=== PATIENT | male | born 1970 | race Caucasian/White ===

== ENCOUNTER 2018-06-18 05:43 | Day surgery (SDC) | payer OTHER ==
--- NOTE | 2018-06-17 20:39 | PDGENHP ---
History and Physical - Chief Complaint RIGHT HIP PAIN - History of Present Illness 1. Bilateral~Femoroacetabular impingement (MELO) Cam type,~with~resultant labral tear;~RIGHT SIDE SYMPTOMATIC 2. Right~Borderline Hip~Dyplasia 3. ~~Right Hip Early Osteoarthritis 4. ~~Left lower radicular symptoms 5. 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 ~Allisonenjoys birding, running, and cycling. Camilo's~right~hip pain~started January 2017, with~no~recalled trauma or injury, and with~no~previous complaints.~Allisonhas~a known history of hip dysplasia. He was seen by Dr. Hernandes who diagnosed him with~Right~BL~Hip~dysplasia. Presentation today is of~lateral~right~hip pain. ~The hip~does~wake him~at night and~does~click and catch on~him. Sitting~can be uncomfortable~for him.~ Allisondoes~report suffering from lower back pain episodes (for 20 years----~has Left lower radicular symptoms) Allisonhas~participated in physical therapy (several months)~and has~tried other conservative measures including cortisone Right~hip injection~(he had immediate relief with 4 months of relief)~.~He~has not~received sufficient symptomatic improvement. Allisonhas not~utilized medication for pain management. Allisondenies issues with the left~hip. ~ Allisonunderstands that~kvng~has a hip and pelvis problem which should be researched and wishes to get a better understanding of~his~hip status, followed by an establishment of a treatment strategy, hoping~kvng~would be able to get back to~his~well being active life. 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 Relevant familial history:~Mom with Hemophilia Past surgical history:~ No. Surgery Anesthesia 1 Sinus surgery x2 general Camilo~denies problematic issues with general anesthesia in the past. I have reviewed, verified and agree with the past medical, surgical, family and social history. Current Medications:~has a current medication list which includes the following prescription(s): alpha lipoic acid, azelaic acid, cholecalciferol (vitamin d3), diphenhydramine, fexofenadine, ibuprofen, ketoconazole, minoxidil, omega-3s/dha/ epa/fish oil, recombinate, and tretinoin. ALLERGIES:~is allergic to ddavp [desmopressin]. Objective: Physical Examination: Allisonis 6~feet~0~inches tall and weighs~150~Lbs. Allisonis AAO x3; kvng~is well- nourished, in NAD. Skin is warm and dry. ~Breathing is non-labored. ~CV with RRR by pulse. Abdomen is soft, NTND. Currently,~kvng~walks with a~normal~gait. Trendelenburg sign is~negative~and proprioception~is normal,~both~sides. Kvng~presents~with mild~signs of joint laxity.~Beightons Score:~0 Lower spine examination is~negative~for sciatic or femoral nerve irritation with negative~SLR &~femoral stretch tests. Range of motion of the spine is normal~for flexion, extension, and rotations,~with no~associated pain. Strength, Sensation and pulses are~normal -~bilaterally Ankles and knees exams are~normal~and~no~mal-alignment is evident.~ Kvng~has~leg length discrepancy LEFT SHORT 1 cm Thigh circumference is~symmetric~with no evidence for muscle atrophy~on both~ sides. Hip ROM (degrees): FL ER At 90~hip FL IR At 90~hip FL AB AD EX IR Neutral hip ER Neutral hip R 105 50 45 30 5 5 50 40 L 105 50 20 40 5 10 40 50 Specific hip and pelvis tests: Impingement Test AMY Roll Add. Longus R +++ +++ Negative Negative L Negative Negative Negative Negative Glut. Med ITB Posterior Imp R Negative 5/5 strength Negative 5/5 strength Negative L Negative 5/5 strength Negative 5/5 strength Negative Squeeze test measured~strong Bony Symphysis pubis is~pain free~to touch while concentric activity of the rectus abdominis, does not~produce pain at its insertion. Ilio Psos specific tests are~negative for pain during cycling for~both hips~and no snap. HF has~good strength no pain~both hips. Left Lateral~capsule tenderness. Greater trochanteric burse is~pain free~on both hips. Piriformis tests: FAIR is~negative,~with no~local signs of neuritis related to sciatic nerve. SIJs examination is~normal~with~normal~AMY in relation and local tenderness. Hamstrings tests are~negative~functional contraction and negative~tendinopathy both hips. Left Tibia:~VARUS BOWING On a daily basis, the following percentages reflect~Camilo's overall total pain: Deep hip:~100% Imaging: Radiology studies which I~have personally reviewed, analyzed and measured are below: XR: AP of the hip and pelvis: Performed in a~good~technique Coccyx~below~pubic symphysis 0~degrees [place]~Lines are preserved. Minimal~Pathological signs are seen in the Symphysis Pubis.~ Minimal~Pathological signs are seen at the Ischial~tuberosity. ~ Specific measurements show:~ 12 Caudal in parenthesis NSA~ LCE Sourcil~Angle Sharp's angle Lat. Cam Lat. Pincer C.Over~sign Head~Coverage % ATDmm R N 23~(25) 7 (9) 42 + - - 74 N L N 29~(29) 8 (7) 42 + - - 88 N Pos. wall sign ISS NAD ~~Dysplasia Comments R Negative Negative 14~mm ++ L Negative Negative 15.6~mm Negative Sclerosis Sup. Lat. OA Cysts Joint Space-WBZ Joint Space-Medial R + ++ ++ 4.3~mm 4.3~mm L + + + 5.2~mm 4.6~mm 5.2 X Table lateral: Anterior cam lesion is~seen~on both hips. Alpha Angle: ~ Right~53~dergrees Left~60~degrees Right Hip~MRI shows:~some cartilage damage, small labrum with tear, no bone edema or subchondral cysts Impression and plan:~ Camilo~is a~47 y.o.~active male~suffering from symptomatic~Right~hip pain due to Borderline~Hip Dyplasia and~Femoroacetabular impingement (MELO) Cam type,~with~ resultant labral tear causing significant disability to~him~and altering~his~ sport and life activities. Physical examination, imaging, and~his~story correspond with the diagnosis mentioned above. I explained that hip dysplasia is a condition wherein the hip joint has excessive play~and instability due to a variety of factors, including the depth and adequacy of the socket, the orientation of the femur bone, and ligament laxity around the hip joint. Dysplasia ranges in severity from borderline to jazmín, with treatment options being specific to the specific nature of the problem. Left untreated, the instability in the hip joint can cause progressive tearing of the labrum and deterioration of the surface cartilage, ultimately resulting in progressive osteoarthritis of the hip. I explained that femoroacetabular impingement (MELO - Cam type) arises due to a bony or soft tissue conflict between the femur (ball) and acetabulum (socket) caused by an abnormality in the shape of the femoral head and neck. Over time, repetitive impingement can result in damage to the labrum and adjacent surface cartilage within the socket, ultimately giving rise to progressive osteoarthritis of the hip. I explained that although a labral tear can be a source of pain, it is rarely the root of the problem and typically occurs secondary to an underlying abnormality in the shape and mechanics of the hip joint. I reviewed conservative treatment options for Dysplasia and MELO including activity modification to avoid positions of impingement or instability, physical therapy, non-steroidal anti-inflammatory medications, and various injections (corticosteroid and PRP) aimed at reducing inflammation in the hip joint or/and preventing dynamic instability and impingement. PRP injections may promote healing and reduce symptoms in certain cases but it will not repair chronically damaged tissue. Although these measures may help to buy time~and reduce current level of symptoms, they are not a definitive solution to the problem given the underlying abnormality in the shape of the hip joint. Patients who have failed conservative management and continue to experience symptoms are candidates for definitive surgical treatment, which may consist of hip arthroscopy alone or in combination with more invasive bony realignment procedures of the hip socket and/or femur called periacetabular osteotomy (ISMAEL) or derotational femoral osteotomy (DFO). Hip arthroscopy typically includes treating the labrum with either repair or reconstruction of the torn labrum; as well as addressing the underlying abnormalities by restoring the normal shape to the hip joint. If the cartilage is damaged a Microfracture surgical procedure may also be necessary to help stimulate the growth of fibrocartilage. If a patient requires a labral reconstruction or a Microfracture, the initial rehabilitation from the surgery may take longer, but the long term care administrator results are typically favorable. I reviewed the technical aspects of periacetabular osteotomy (ISMAEL) including risks, benefits, and expected course of recovery.~Camilo~understands that ISMAEL is an inpatient procedure carried out through two medium sized incisions on the front and back of the hip joint. The hip socket is cut, realigned, and stabilized with 2 3 internal screws. Risks include infection, bleeding, injury to nearby nerves or vessels, stiffness, persistent pain, instability, failure of bony healing, implant related complications, and venous thromboembolic disease. Rarely, revision surgery may be required to address these problems. Risks, potential complications, side effects and recovery from surgical procedure were discussed in length. We explained how this surgery is an open procedure, and though patients tend to do well in the long-term, it involves significant pain in the first 2-4 weeks post-op and a rather lengthy rehab.~Overall recovery takes approximately 6 12~months depending on the extent of damage and degree of repair. Camilo~understands that he~will undergo hip arthroscopy 1 week prior to the ISMAEL to address damage inside the hip joint. Camilo~understands that hip arthroscopy and ISMAEL are two separate procedures that are best performed one week apart, with the arthroscopy commencing first to "tighten up" any pathology evident in the hip joint (labral repair, etc.) and the ISMAEL open procedure occurring 7-10 days later to realign the acetabulum. Camilo~will review the info presented. In order to obtain more detailed information regarding the alignment, orientation, and shape of the bony hip and pelvis I will order a CT scan to be performed. The results of the CT scan, including femoral torsion and acetabular version measured values and 3D images, will aid me in deciding on the best treatment strategy and surgical pre-planning. Camilo~is going to contact us after completing his~imaging studies. Camilo is~currently~scheduled for a Right Hip Arthroscopy with Dr. Hernandes in March Camilo~is happy with this plan. I have also supplied~him~with handouts, outlining the expected surgical treatment and rehab involved. I wish~Camilo~all the best, ~~ Apolinar Jones, PAC History Information - Allergies/Home Medication List Allergies/Adverse Reactions: No Known Allergies Allergy (Unverified 05/29/18 17:07) Home Medications: Advil 05/29/18 [Last Taken Unknown] Lala Allergy 05/29/18 [Last Taken Unknown] Astelin 05/29/18 [Last Taken Unknown] Herbals/Supplements -Info Only 05/29/18 [Last Taken Unknown] Nasacort 05/29/18 [Last Taken Unknown] I have personally reviewed and updated: medical history - Social History Smoking Status: Never smoked Review of Systems Review of Systems: Physical Exam Physical Exam:
[2018-06-18] MEDS ORDERED: ACETAMINOPHEN 500 MG TAB PO ONE (06:17)
[2018-06-18] MEDS ORDERED: ceFAZolin 2 GM/DEXTROSE 100 ML IV ONE (06:17)
[2018-06-18] MEDS ORDERED: PREGABALIN 150 MG CAP PO ONE (06:17)
[2018-06-18] MEDS ORDERED: LR 1,000 ML IV ONE (06:18)
[2018-06-18] MEDS ORDERED: ANTIHEMOPHILIC FACTOR IV PRN (06:43)
[2018-06-18] MEDS ORDERED: [UNRECOGNIZED DRUG - OTHER] IV PRN (06:43)
[2018-06-18] MEDS ORDERED: STERILE WATER IV PRN (06:43)
[2018-06-18] MEDS ORDERED: STERILE WATER IV ONE (07:00)
[2018-06-18] MEDS ORDERED: ANTIHEMOPHILIC FACTOR IV ONE (07:00)
[2018-06-18] MEDS ORDERED: DEXMEDETOMIDINE HCL 400 MCG in NS 100 ML IV SCH (07:00)
[2018-06-18] MEDS ORDERED: [UNRECOGNIZED DRUG - OTHER] IV ONE (07:00)
[2018-06-18] MEDS ORDERED: EPINEPHrine 1 MG/ML INJ ONE (07:01)
[2018-06-18] MEDS ORDERED: BUPIVACAINE/EPI 0.25% 30 ML SDV ONE (07:01)
[2018-06-18] MEDS ORDERED: fentaNYL 100 MCG/2 ML INJ ONE (07:15)
[2018-06-18] MEDS ORDERED: MIDAZOLAM 2 MG/2 ML VIAL ONE (07:15)
[2018-06-18] MEDS ORDERED: PROPOFOL/EMULSION 500 MG/50 ML BOTTLE IV ONE (07:18)
[2018-06-18] MEDS ORDERED: ALBUMIN 5% 250 ML BOTTLE IV ONE (07:55)
[2018-06-18] MEDS ORDERED: PROMETHAZINE HCL 25 MG/ML INJ IVP PRN (08:13)
[2018-06-18] MEDS ORDERED: LR 500 ML IV PRN (08:13)
[2018-06-18] MEDS ORDERED: fentaNYL 100 MCG/2 ML INJ IVP PRN (08:13)
[2018-06-18] MEDS ORDERED: DIAZEPAM 5 MG/ML 1 ML SYR IVP PRN (08:13)
[2018-06-18] MEDS ORDERED: MEPERIDINE 25 MG/0.5 ML AMP IVP PRN (08:13)
[2018-06-18] MEDS ORDERED: ONDANSETRON 4 MG/2 ML VIAL IVP PRN (08:13)
[2018-06-18] MEDS ORDERED: HYDROCODONE/APAP 5/325 TAB PO PRN (08:13)
[2018-06-18] MEDS ORDERED: NALOXONE HCL 0.4 MG/ML INJ IVP PRN (08:13)
[2018-06-18] MEDS ORDERED: ALBUTEROL 3 ML DEYVIAL IH PRN (08:13)
[2018-06-18] MEDS ORDERED: DEXAMETHASONE 4 MG/ML VIAL IVP PRN (08:13)
[2018-06-18] MEDS ORDERED: oxyCODONE IR 5 MG TAB PO PRN (08:13)
--- NOTE | 2018-06-18 08:13 | PDANEPAE ---
ANE Past Medical History - Cardiovascular History Hx Hypertension: No Hx Arrhythmias: No Hx Chest Pain: No Hx Coronary Artery / Peripheral Vascular Disease: No Hx CHF / Valvular Disease: No Hx Palpitations: No - Pulmonary History Hx COPD: No Hx Asthma/Reactive Airway Disease: No Hx Recent Upper Respiratory Infection: No Hx Oxygen in Use at Home: No Hx Sleep Apnea: Yes Sleep Apnea Screening Result - Last Documented: Positive Pulmonary History Comment: SCARRING PLEURA - UNKNOWN CAUSE. POS MILD SLEEP APNEA - NO CPAP - Neurologic History Hx Cerebrovascular Accident: No Hx Seizures: No Hx Dementia: No - Endocrine History Hx Diabetes: No - Renal History Hx Renal Disorders: No - Liver History Hepatic History Comment: 1982 HEP C1B INF - FROM [facility]. - CURED IN A CLINICAL TRIAL. LIVER FUNCTIONS NOW COMPLETELY NORMAL - Neurological & Psychiatric Hx Hx Neurological and Psychiatric Disorders: No - Cancer History Hx Cancer: No - Congenital Disorder History Hx Congenital Disorders: No - GI History Hx Gastrointestinal Disorders: No Gastrointestinal History Comment: GASTRITIS 02/2018 - STILL IMPROVING - Other Health History Other Health History: HEMOPHILIA - A. FACTOR 8 LEVELS - RARE SPONTANEOUS BLEEDING - Chronic Pain History Chronic Pain: Yes (R HIP & BACK PAIN) - Surgical History Prior Surgeries: 1982 DENTAL SURGERY. 2000 TURBINATE & NASAL POLYPS. 2009 REVISION TURBINATE REDUCTION ANE Review of Systems Review of Systems: - Exercise capacity METS (RN): 4 METS ANE Patient History - Allergies Allergies/Adverse Reactions: No Known Allergies Allergy (Unverified 05/29/18 17:07) - Home Medications Home Medications: Advil 05/29/18 [Last Taken 05/04/18] Lala Allergy 05/29/18 [Last Taken 06/16/18] Astelin 05/29/18 [Last Taken 06/17/18] Herbals/Supplements -Info Only 05/29/18 [Last Taken 06/11/18] Nasacort 05/29/18 [Last Taken 06/17/18] - NPO status NPO Since - Liquids (Date): 06/17/18 NPO Since - Liquids (Time): 22:30 NPO Since - Solids (Date): 06/18/18 NPO Since - Solids (Time): 20:30 - Smoking Hx Smoking Status: Never smoked - Family Anes Hx Family Hx Anesthesia Complications: NEG ANE Labs/Vital Signs - Vital Signs Blood Pressure: 111/77 Heart Rate: 57 Respiratory Rate: 18 O2 Sat (%): 96 Height: 182.88 cm Weight: 68.039 kg ANE Physical Exam - Airway Neck exam: FROM Mallampati Score: Class 1 Mouth exam: normal dental/mouth exam - Pulmonary Pulmonary: no respiratory distress, no rales or rhonchi, clear to auscultation - Cardiovascular Cardiovascular: regular rate and rhythym, no murmur, rub, or gallop - ASA Status ASA Status: III ANE Anesthesia Plan Anesthesia Plan: general endotracheal anesthesia Lines/Monitors: additional IV
[2018-06-18] MEDS ORDERED: SUGAMMADEX SODIUM 200 MG/2 ML VIAL IVP ONE (08:19)
[2018-06-18] MEDS ORDERED: ROCURONIUM 50 MG/5 ML VIAL ONE (08:19)
[2018-06-18] MEDS ORDERED: RANITIDINE 50 MG/2 ML VIAL ONE (08:19)
[2018-06-18] MEDS ORDERED: KETOROLAC 30 MG/1 ML SDV ONE ×2 (08:19→10:12)
[2018-06-18] MEDS ORDERED: METOCLOPRAMIDE 10 MG/2 ML VIAL ONE (08:19)
[2018-06-18] MEDS ORDERED: ONDANSETRON 4 MG/2 ML VIAL ONE ×2 (08:19→12:43)
[2018-06-18] MEDS ORDERED: LIDOCAINE 2% 2 ML INJ ONE (08:19)
[2018-06-18] MEDS ORDERED: PROPOFOL 200 MG/20 ML VIAL ONE (08:55)
[2018-06-18] MEDS ORDERED: GLYCOPYRROLATE 0.2 MG/1 ML VIAL ONE (10:13)
[2018-06-18] MEDS ORDERED: NEOSTIGMINE METHYLSULFATE 5 MG/5 ML SYR ONE (10:13)
--- NOTE | 2018-06-18 11:48 | POSTANESTH ---
Post Anesthetic Evaluation Cardiovascular Status: Normal, Stable, Similar to Pre-Op Cond Respiratory Status: Normal, Stable, Similar to Pre-op Cond. Level of Consciousness/Mental Status: Moderately Sleepy Pain Control: Adequate, Prn Tx Ordered Nausea/Vomiting Control: Adequate, Prn Tx Ordered Complications Possibly Related to Anesthesia: None Noted
[2018-06-18] MEDS ORDERED: HYDROmorphONE/DILAUDID 2 MG TAB ONE (12:08)
[2018-06-18] MEDS ORDERED: HYDROmorphONE/DILAUDID 2 MG TAB PO ONE (12:15)
== END 2018-06-18 14:33 | disposition home or self-care (01) ==
LOC: FSGY 05:43
PROVIDERS: ATTEND Orthopaedic Surgery Sports Medicine
PROC: 0SQ94ZZ Repair Right Hip Joint, Percutaneous Endoscopic Approach (ICD-10-PCS; principal; 2018-06-18 07:15)
DX: M25.851 Other specified joint disorders, right hip (principal); M24.151 Other articular cartilage disorders, right hip; K21.9 Gastro-esophageal reflux disease without esophagitis; D66 Hereditary factor VIII deficiency; M54.16 Radiculopathy, lumbar region
CPT/HCPCS: C1713; J0171; J0690; J1885; J2250; J2405; J2704; J2710; J2765; J2780; J3010; P9041